=== PATIENT | male | born 1945 | race Caucasian/White ===

== ENCOUNTER 2018-03-22 09:14 | Emergency (ER) | payer MEDICARE ==
[2018-03-22 09:28] VITALS: BP 120/86
[2018-03-22] MEDS ORDERED: predniSONE TAB* 20 MG PO ONE (09:40)
--- NOTE | 2018-03-22 09:53 | UC ---
Throat Pain/Nasal Jakob HPI - HPI Summary HPI Summary: Patient is a 72-year-old male who noticed uvular edema when he woke up this morning. He has mild discomfort and no shortness of breath. Patient has a history of obstructive sleep apnea but does not use his CPAP machine. He has had recent nasal congestion and mild postnasal drip. He denies any chest pain. - History of Current Complaint Chief Complaint: UCRespiratory Stated Complaint: SOB Time Seen by Provider: 03/22/18 09:21 Hx Obtained From: Patient Onset/Duration: Sudden Onset, Lasting Hours Severity: Mild Pain Intensity: 0 Pain Scale Used: 0-10 Numeric Cough: None Associated Signs & Symptoms: Positive: Negative, Sinus Discomfort - Allergies/Home Medications Allergies/Adverse Reactions: Allergies Allergy/AdvReac Type Severity Reaction Status Date / Time No Known Allergies Allergy Verified 03/22/18 09:23 Home Medications: Home Medications Triazolam TAB* [Halcion TAB*] 0.25 mg PO BEDTIME PRN 03/22/18 [History Confirmed 03/22/18] PMH/Surg Hx/FS Hx/Imm Hx Endocrine History: Hypothyroidism, Dyslipidemia Cardiovascular History: Hypertension - Surgical History Surgical History: Yes Surgery Procedure, Year, and Place: R hip replacement. L knee replacement - Family History Known Family History: Positive: Hypertension - Social History Alcohol Use: None Substance Use Type: None Smoking Status (MU): Light Every Day Tobacco Smoker Amount Used/How Often: 1-2 cigs Review of Systems Constitutional: Negative Skin: Negative Eyes: Negative ENT: Sinus Congestion Respiratory: Negative Cardiovascular: Negative Gastrointestinal: Negative Genitourinary: Negative Motor: Negative Neurovascular: Negative Musculoskeletal: Arthralgia Neurological: Negative Psychological: Negative Is Patient Immunocompromised?: No All Other Systems Reviewed And Are Negative: Yes Physical Exam Triage Information Reviewed: Yes Appearance: Well-Appearing, No Pain Distress, Well-Nourished Vital Signs: Initial Vital Signs Temp 97.3 F 03/22/18 09:20 Pulse 80 03/22/18 09:20 Resp 18 03/22/18 09:20 BP 120/86 03/22/18 09:20 Pulse Ox 95 03/22/18 09:20 Vital Signs Reviewed: Yes Eyes: Positive: Conjunctiva Clear ENT: Positive: Hearing grossly normal, Nasal congestion, Uvula midline - swollen uvula, Other - no stridor. Negative: Nasal drainage, Trismus, Muffled voice, Hoarse voice Neck: Positive: Supple, Nontender Respiratory: Positive: Lungs clear, Normal breath sounds Neurological: Positive: Alert Psychological Exam: Normal Diagnostics - Laboratory Diagnostic Studies Completed/Ordered: px 95 % comment : normal/not hypoxic Throat Pain/Nasal Course/Dx - Differential Dx/Diagnosis Provider Diagnoses: Uvulitis Discharge - Sign-Out/Discharge Documenting (check all that apply): Discharge/Admit/Transfer - Discharge Plan Condition: Stable Disposition: HOME Prescriptions: Fexofenadine (NF) [Cinthya (NF)] 60 mg PO BID #14 tab predniSONE [Prednisone 20 MG TAB] 60 mg PO DAILY #6 tab Patient Education Materials: Uvulitis (ED) Referrals: Baldo James MD [Medical Doctor] - 3 Days (if not better) Additional Instructions: I suspect the cause of your uvular edema is multi factorial Post nasal drip and trauma from your uvula vibrating with snoring/sleep apnea I suggest you revisit using your CPAP Call your Primary to see about restarting it recheck for worsening symptoms see your MD in 3 days if not markedly better - Billing Disposition and Condition Condition: STABLE Disposition: Home
== END 2018-03-22 09:55 | disposition home or self-care (01) ==
LOC: UCEAST 09:14
DX: K12.2 Cellulitis and abscess of mouth (principal); J34.89 Other specified disorders of nose and nasal sinuses; E03.9 Hypothyroidism, unspecified; E78.5 Hyperlipidemia, unspecified; I10 Essential (primary) hypertension; Z96.641 Presence of right artificial hip joint; Z96.652 Presence of left artificial knee joint; F17.210 Nicotine dependence, cigarettes, uncomplicated
CPT/HCPCS: 99202; G0463; J7512

== ENCOUNTER 2018-04-20 06:34 | Inpatient (IN) | payer MEDICARE ==
--- NOTE | 2018-04-15 03:45 | HP ---
HISTORY AND PHYSICAL: DATE OF SURGERY: 04/20/18. DATE OF OFFICE VISIT: 04/14/18. SURGEON: Jing Melton MD. * (DICTATED BY VIRGILIO LAUREANO) PROCEDURE: Left total hip arthroplasty. CHIEF COMPLAINT: Left hip pain. HISTORY OF PRESENT ILLNESS: Mr. Serrano is a 72-year-old gentleman with complaints of left hip pain. He has failed conservative treatment and elected to proceed with a left total hip arthroplasty, which is scheduled for 04/27/18. PAST MEDICAL HISTORY: 1. Sleep apnea. 2. Hypertension. 3. Hypothyroidism. 4. BPH. 5. Obesity. PAST SURGICAL HISTORY: 1. Right total hip arthroplasty. 2. Left total knee arthroplasty. CURRENT MEDICATIONS: 1. [place] 10/325 every 6 hours. 2. Levothyroxine 175 mcg daily. 3. Lisinopril 10 mg daily. 4. Triazolam 0.25 mg 1 to 2 q.h.s. as needed for max 0.4 mg daily. ALLERGIES: No known drug allergies. FAMILY HISTORY: Cancer and Parkinson's. SOCIAL HISTORY: A 72-year-old gentleman lives with his . He does not use drugs or alcohol. He does smoke approximately 1 cigarette a day. REVIEW OF SYSTEMS: A complete 14-point review of systems was reviewed with the patient and it was positive for hypothyroidism. He denies history of DVT, PE, hepatitis, HIV, or anesthesia problems. PHYSICAL EXAMINATION GENERAL: He is well-developed, well-nourished, in no acute distress. VITAL SIGNS: He stands 72 inches tall, weighs 330 pounds. Blood pressure 112/ 80, heart rate is 64. HEENT: Normocephalic, atraumatic. NECK: Supple. No palpable lymph nodes. PULMONARY: The lungs are clear to auscultation bilaterally. CARDIO: Regular rate and rhythm. Strong S1, S2. ABDOMEN: Soft, nontender, nondistended. MUSCULOSKELETAL: Left lower extremity, the skin is intact. There are no open wounds or abrasions. He walks with an antalgic type gait favoring his left hip. His range of motion is 0 to 80 degrees of flexion, 20 degrees of external rotation. 2+ dorsalis pedis pulses. He has intact sensation. His lower extremity muscle group strengths are intact to 5/5. NEUROLOGICAL: He is alert and oriented x3. ASSESSMENT AND PLAN: Mr. Serrano is a 72-year-old gentleman with end-stage osteoarthritis of the left hip. He has failed conservative treatment and elected to proceed with a left total hip arthroplasty, which is scheduled for with Dr. Melton. Dr. Melton discussed the risks and benefits of the surgery at today's visit and all of his questions were answered. He will follow up with Dr. Melton 2 weeks after the surgery. VIRGILIO LAUREANO [id number]/[facility] #: [id number] MTDNacho
[~2018-04-20 06:34] MED LIST: Acetaminophen TAB* 325 MG PO ONE; Buffered Lidocaine 0.9% SYRIN* 5 ML/SYR SYRINGE INTRADERM ONE; Famotidine IV* 10 MG/ML 2 ML (20 mg) IV ONE; Gabapentin CAP(*) 300 MG PO ONE; Metoclopramide TAB* 10 MG PO ONE; celeCOXIB CAP* 200 MG PO ONE
--- OUTSIDE RECORDS SUMMARY | 2018-04-20 06:43 | XMS REPORT ---
:1945 External Reference #:[id number] Author Organization [employer] Address [address] [place] [address] Phone [phone] Care Team Providers Name Role Phone Baldo James MD Primary Care Physician Unavailable Payers Type Date Identification Numbers Payment Provider Subscriber Medicare Primary Policy Number: [id number] Medicare Arjun Serrano PayID: [id number] [facility] [address] [place] [address] Problems Date Description Provider Status Onset: 03/15/2018 Localized, primary osteoarthritis of the Jing Melotn M.D. Active pelvic region and thigh Onset: 03/15/2018 Localized, primary osteoarthritis Jing Melton M.D. Active Family History Date Family Member(s) Problem(s) Comments General No Current Problems Social History Type Date Description Comments Lives With Occupation Retired ETOH Use Denies alcohol use Smoking Patient is a current smoker, smokes every day Exercise Type/Frequency Does not exercise Allergies, Adverse Reactions, Alerts Date Description Reaction Status Severity Comments 03/15/2018 NKDA active Medications Medication Date Status Form Strength Qnty SIG Indications Ordering Provider [place] Active Tablets 10-325mg 1 tab Unknown 000 every 6 hours as needed for pain mdd=4 Levothyroxine Active Tablets 175mcg 1 by mouth Unknown Sodium 000 every day Lisinopril Active Tablets 10mg 1 by mouth Unknown 000 every day Triazolam Active Tablets 0.25mg take 1-2 Unknown 000 at bedtime as needed Flomax Active Capsules 0.4mg 1 by mouth Unknown 000 every day Magnesium Hx Tablets 400mg 1 by mouth Unknown 000 - every day 018 Vital Signs Date Vital Result Comment 04/14/2018 Height 72 inches 6'0" Weight 330.00 lb Heart Rate 64 /min BP Systolic 112 mmHg BP Diastolic 80 mmHg Respiratory Rate 24 /min Body Temperature 97.4 F BMI (Body Mass Index) 44.8 kg/m2 03/15/2018 Height 72 inches 6'0" Weight 330.00 lb Heart Rate 95 /min BP Systolic 121 mmHg BP Diastolic 81 mmHg Body Temperature 97.7 F BMI (Body Mass Index) 44.8 kg/m2 Results Description No Information Procedures Description No Information Encounters Type Date Location Provider CPT E/M Dx Office Visit 03/15/2018 [facility] Jing Melton M.D. [id number] M25.561 3:[facility] M25.461 M17.11 M25.552 M16.12 E66.01 Z68.41 Plan of Care Future Appointment(s):05/10/2018 11:30 am - VIRGILIO Isabel at [facility]04/27/2018 3:30 pm - Richard Pino PA-C at [facility]04/27/2018 3:30 pm - VIRGILIO Isabel at [facility].ARenee04/27/2018 3:30 pm - Jing Melton M.D. at [facility]04/14/2018 - Jing Melton M.D.M25.552 Pain in left hipFollow up:Follow up: 2 weeks after [id number] Unilateral primary osteoarthritis, left hip
[2018-04-20] MEDS ORDERED: Lidocaine 2% PF * 5 ML VIAL ONE (07:16)
[2018-04-20] MEDS ORDERED: Propofol* 10 MG/ML 20 ML BTL IV PUSH ONE (07:16)
[2018-04-20] MEDS ORDERED: Ondansetron INJ* 2 MG/ML VIAL ONE (07:16)
[2018-04-20] MEDS ORDERED: fentaNYL* 50 MCG/ML 5 ML VIAL (250 MCG VIAL) ONE (07:16)
[2018-04-20] MEDS ORDERED: Dexamethasone IV* 4 MG/ML 1 ML (4 MG) ONE ×2 (07:16→09:04)
[2018-04-20] MEDS ORDERED: KETAMINE HCL* 50 MG/ML 10 ML VIAL ONE (07:16)
[2018-04-20] MEDS ORDERED: Rocuronium* 10 MG/ML VIAL ONE (07:16)
[2018-04-20] MEDS ORDERED: Midazolam* 1 MG/ML 5 ML VIAL (5 MG) ONE (07:17)
[2018-04-20] MEDS ORDERED: ceFAZolin 1 GM in Dextrose (*) 1 GM/50 ML BAG IVPB ONE (07:36)
[2018-04-20] MEDS ORDERED: Metoclopramide TAB* 10 MG ONE (07:36)
[2018-04-20] MEDS ORDERED: celeCOXIB CAP* 100 MG ONE (07:36)
[2018-04-20] MEDS ORDERED: ceFAZolin 2 GM PREMIX (*) 2 GM/50 ML BAG IVPB ONE (07:36)
[2018-04-20] MEDS ORDERED: Gabapentin CAP(*) 300 MG ONE (07:36)
[2018-04-20] MEDS ORDERED: Famotidine IV* 10 MG/ML 2 ML (20 mg) ONE (07:36)
[2018-04-20] MEDS ORDERED: Acetaminophen TAB* 325 MG ONE (07:36)
[2018-04-20] MEDS ORDERED: VASOPRESSIN 20 UNITS/ML 1 ML VIAL ONE (08:34)
[2018-04-20] MEDS ORDERED: Levalbuterol 0.63MG/3ML NEB* UNIT OF USE INH PRN (09:40)
[2018-04-20] MEDS ORDERED: HYDROmorphone INJ* 0.5 MG/0.5 ML SYRINGE IV PRN (09:40)
[2018-04-20] MEDS ORDERED: Ondansetron INJ* 2 MG/ML VIAL IV PRN (09:40)
[2018-04-20] MEDS ORDERED: Naloxone* 0.4 MG/ML 1 ML VIAL IV PRN (09:40)
[2018-04-20] MEDS ORDERED: Bupivacaine 0.5% PF 10 ML VIAL INJ ONE (09:49)
[2018-04-20] MEDS ORDERED: HYDROmorphone INJ* 0.5 MG/0.5 ML SYRINGE ONE ×2 (10:09→10:31)
--- NOTE | 2018-04-20 10:25 | RAD ---
INDICATION: Left hip replacement COMPARISON: None TECHNIQUE: Portable, crosstable lateral imaging was performed. FINDINGS: There is placement of the acetabular cup and the femoral stem for sizing.
[2018-04-20] MEDS ORDERED: Phenylephrine 1% NASAL* 15 ML BOT ONE (11:08)
[2018-04-20] MEDS ORDERED: Labetalol IV* 5 MG/ML 20 ML VIAL ONE (11:23)
[2018-04-20] MEDS ORDERED: Magnesium Hydroxide LIQ* 30 ML UDC PO PRN (11:24)
[2018-04-20] MEDS ORDERED: oxyCODONE/Acetamin 5/325 MG* TAB PO PRN (11:24)
[2018-04-20] MEDS ORDERED: Ondansetron TAB* 4 MG PO PRN (11:24)
[2018-04-20] MEDS ORDERED: Morphine INJ* 2 MG/ML 1 ML CARPUJECT IV PRN (11:24)
[2018-04-20] MEDS ORDERED: diPHENhydraMINE IV* 50 MG/ML 1 ml VIAL (BENADRYL) IV PRN (11:24)
[2018-04-20] MEDS ORDERED: Bisacodyl SUPP* 10 MG SUPP PR PRN (11:24)
[2018-04-20] MEDS ORDERED: Senna TAB PO PRN (11:31)
[2018-04-20] MEDS ORDERED: Neostigmine Methylsulfate* 1 MG/ML 10 ML VIAL (1 mg/ml) ONE (11:37)
[2018-04-20] MEDS ORDERED: Glycopyrrolate IV* 0.2 MG/ML 1 ML VIAL ONE (11:37)
[2018-04-20] MEDS ORDERED: fentaNYL* 50 MCG/ML 2 ML VIAL (100 MCG VIAL) ONE ×2 (11:43→13:17)
[2018-04-20] MEDS: fentaNYL* 50 MCG/ML 2 ML VIAL (100 MCG VIAL) IV PRN ×3 (11:47→13:17)
[2018-04-20] MEDS ORDERED: ceFAZolin 1 GM in Dextrose (*) 1 GM/50 ML BAG IVPB SCH (12:00)
--- NOTE | 2018-04-20 12:31 | RAD ---
Indication: Post LEFT total hip replacement. Comparison: March 15, 2018 Technique: Low AP pelvis and proximal femurs and dedicated AP and crosstable lateral views of the LEFT hip. Report: Complete LEFT hip prosthesis in place with normal alignment. Negative for periprosthetic fracture. Surrounding soft tissue edema and subcutaneous emphysema. RIGHT total hip prosthesis noted. IMPRESSION: #. Unremarkable immediate postop appearance following LEFT total hip replacement.
[2018-04-20] MEDS: Acetaminophen TAB* 325 MG PO SCH ×2 (15:07→21:11)
--- NOTE | 2018-04-20 15:45 | PN ---
Progress Note - Progress Note Date of Service: 04/20/18 SOAP: Post op note: Subjective: Pt was seen in bed today. He states that he feels well, pain is decreased from surgery. He is currently eating a snack and smiling. Disposition is pleasant. He is on continue capnography Objective Alert and oriented. NAD Pts vital signs have been stable. Able to df/pf in left leg. Assesment: POD 0 - LTHA Plan: Continue with capnography Continue with percocet 5/325 for pain PT/OT to start tomorrow Warfarin 6mg tonight, lovenox 40mg tomorrow at 1200
[2018-04-20] MEDS: ceFAZolin 1 GM in Dextrose (*) 1 GM/50 ML BAG IVPB SCH (16:51)
[2018-04-20] MEDS: oxyCODONE TAB* 5 MG TAB PO PRN (16:54)
[2018-04-20] MEDS ORDERED: Warfarin TAB(*) 6 MG PO ONE (17:00)
[2018-04-20] MEDS: Tamsulosin CAP* 0.4 MG PO SCH (17:16)
[2018-04-20] MEDS: Levothyroxine TAB* 175 MCG TAB PO SCH (17:16)
[2018-04-20] MEDS: Lisinopril TAB* 5 MG PO SCH (17:16)
[2018-04-20] MEDS ORDERED: Morphine INJ* 2 MG/ML 1 ML SYRINGE (TWO MG - NEW SYRINGE VERSION) IV PRN (18:31)
[2018-04-20] MEDS: Cyclobenzaprine TAB* 10 MG PO PRN (18:32)
[2018-04-20] MEDS: oxyCODONE/Acetamin 5/325 MG* TAB PO PRN (20:56)
[2018-04-20] MEDS: Docusate CAP* 100 MG PO SCH (20:57)
[2018-04-20] MEDS: Magnesium Hydroxide LIQ* 30 ML UDC PO SCH (21:11)
--- NOTE | 2018-04-20 21:27 | CONS ---
CC: Dr. Baldo James; Dr. Jing Melton * CONSULTATION REPORT: DATE OF CONSULT: 04/20/18 PRIMARY CARE PROVIDER: Dr. Baldo James. PHYSICIAN REQUESTING CONSULT: Dr. Jing Melton. ATTENDING PHYSICIAN: Dr. Tripp West (dictated by Cat Blakely NP) REASON FOR CONSULT: Co-medical management in a patient with a history of sleep apnea, hypertension, obesity. HISTORY OF PRESENT ILLNESS: Mr. Serrano is a 72-year-old male with past medical history significant for sleep apnea, hypertension, hypothyroidism, BPH, obesity , duodenal ulcer, hiatal hernia, and insomnia, who has been in his usual state of health with the exception of complaints of left hip pain. The patient has failed conservative treatments for his left hip pain and has elected to undergo an elective left total hip arthroplasty with Dr. Jing Melton. The patient states that preoperatively he has been in his usual state of health. He denies any fevers, chills, chest pain, shortness of breath, nausea, vomiting, diarrhea. The patient reports that he does not use his CPAP at home and that his primary care provider was going to assist him in having new testing done. The hospitalists were asked to assist with co-medical management during his hospitalization. PAST MEDICAL HISTORY: 1. Sleep apnea. 2. Hypertension. 3. Hypothyroidism. 4. BPH. 5. Obesity. 6. Duodenal ulcer. 7. Hiatal hernia. 8. Insomnia. PAST SURGICAL HISTORY: 1. Status post left total hip arthroplasty. 2. Status post left total knee arthroplasty. MEDICATIONS: Home medications include: 1. Norvasc 10/325 one tablet oral every 6 hours as needed for pain. 2. Levothyroxine 175 mcg oral daily. 3. Triazolam 0.25 mg oral at bedtime as needed. 4. Diclofenac topical gel apply 4 times daily as needed to thumb. 5. Flonase nasal spray, 2 sprays to nares daily as needed for allergy symptoms. ALLERGIES: No known drug allergies. FAMILY HISTORY: The patient denies any family history of coronary artery disease, cancer, or diabetes. The patient thinks his father may have had cancer , but he is unsure. SOCIAL HISTORY: The patient denies alcohol or recreational drug use. He smokes 1 cigarette daily. He has a 40-year smoking history. His , Camelia Serrano, will be his surrogate decision maker in the event he is unable to make decisions for himself. REVIEW OF SYSTEMS: I performed an 11-point review of systems. All the pertinent positives and negatives are mentioned in the history of present illness. The remaining review of systems is negative. PHYSICAL EXAM: Vital Signs: Temperature 97.5, heart rate 95, respiratory rate 18, O2 sat 95% on 3 L via nasal cannula, blood pressure 135/82. General Appearance: The patient is alert, pleasant, appears to be in no acute distress. HEENT: Normocephalic, atraumatic. Pupils are equal and reactive to light. Extraocular movements are intact. Respiratory: There is no accessory muscle use. Lungs are clear to auscultation, bilateral. Cardiovascular: Regular rate and rhythm. S1, S2 present. There are no murmurs, rubs, or gallops heard. Abdomen: Soft, large, nontender, nondistended. There are bowel sounds present x4. Extremities: There is no lower extremity edema. DP and PT pulses are 2+ and symmetric. Musculoskeletal: There is no clubbing or cyanosis noted. The patient exhibits good strength in all extremities. Neurological: The patient is alert and oriented x4. Cranial nerves II through XII are grossly intact. Psychological: The patient is calm and cooperative. Skin: There are no rashes or abnormalities seen. He has a dressing to his left hip that is clean, dry, and intact. LABORATORY DATA: Preoperative labs from 03/30/18 revealed sodium 139, potassium 4.3, chloride 103, CO2 26, BUN 21, creatinine 0.9, glucose 102. White blood cell count 10.7, hemoglobin 15.0, hematocrit 46.6, platelet count 319. Urine culture from 04/14/18 with no growth. IMPRESSION: Mr. Serrano is a 72-year-old male with past medical history significant for sleep apnea, hypertension, hypothyroidism, benign prostatic hyperplasia, obesity, a duodenal ulcer, and osteoarthritis, who presents to the hospital for an elective left total hip arthroplasty with Dr. Jing Melton. The hospitalists have been asked to assist with co-medical management of this patient during his hospitalization. ASSESSMENT/PLAN: 1. Status post left total hip arthroplasty. Management will be per Orthopedic Surgery. The patient will have his H and H trended. He will have urinary catheter in place until the morning. He will be placed on a bowel regimen and pain management regimen. We will trend his H and H's, check a BMP in the morning. He will have physical therapy and occupational therapy. 2. Hypertension. The patient is currently normotensive with some labile blood pressures. We will continue his lisinopril unless he becomes hypotensive this evening at which time we will hold it and resume accordingly. 3. Hypothyroidism. The patient will be continued on his home levothyroxine. 4. History of benign prostatic hyperplasia and urinary retention. The patient has stopped taking his tamsulosin. 5. Obstructive sleep apnea. The patient reports that he is noncompliant with his CPAP. He will be on overnight CO2 and pulse ox monitoring. I am going to avoid using CPAP here as the patient states he does not use one at home. We will give him supplemental oxygen at night if needed. 6. Obesity. The patient's BMI is 44. 7. Fluids, electrolytes, and nutrition. He will be on a clear liquid to regular diet as tolerated. 8. Code status. Full code. 9. DVT prophylaxis. He will be on Lovenox bridged to warfarin. 10. Disposition. Inpatient, disposition per Orthopedic Surgery. TIME SPENT: Time for this consultation was approximately 60 minutes, greater than half of that was spent with the patient discussing medications, past medical history, the events leading up to his arrival today, performing a physical examination. Reviewed by KATHIE RODRIGUEZ 04/21/18 1826 [id number]/[facility] #: [id number] CATRACHITA
[2018-04-20] MEDS: Triazolam TAB* 0.25 MG PO PRN (22:56)
[2018-04-21] MEDS: ceFAZolin 1 GM in Dextrose (*) 1 GM/50 ML BAG IVPB SCH ×2 (00:43→08:18)
[2018-04-21] MEDS: oxyCODONE/Acetamin 5/325 MG* TAB PO PRN ×4 (04:32→17:49)
[2018-04-21] MEDS: Acetaminophen TAB* 325 MG PO SCH ×3 (04:36→20:57)
[2018-04-21 06:12] LABS: Hematocrit 36 % (42-52); Hemoglobin 11.6 g/dl (14.0-18.0); Platelet Count 257 10^3/ul (150-450)
[2018-04-21 06:21] LABS: EGFR Non-African American 71.4 (>60)
[2018-04-21 06:23] LABS: INR 0.9 (0.77-1.02)
[2018-04-21] MEDS: Cyclobenzaprine TAB* 10 MG PO PRN (08:18)
[2018-04-21] MEDS: Vitamin THERAPEUTIC TAB PO SCH (08:18)
[2018-04-21] MEDS: Docusate CAP* 100 MG PO SCH ×2 (08:19→20:56)
[2018-04-21] MEDS: Magnesium Hydroxide LIQ* 30 ML UDC PO SCH ×2 (08:20→23:08)
--- NOTE | 2018-04-21 09:10 | PN ---
Progress Note - Progress Note Date of Service: 04/21/18 SOAP: Subjective: [] Patient seen at bedside. He had 3/10 hip pain which is tolerable. He denies chest pain, shortness of breath, dizziness or nausea. He vocalizes that he does not have interest in participating with physical therapy and that he will be determining his course of care himself. Objective: []General: Well appearing, NAD LLE: Left hip dressing CDI without surrounding erythema. Thigh is soft. DF/PF intact. DP2+ BL calves supple and nontender without erythema, edema or palpable cords Assessment: [] POD 1 s/p LTHA Plan: []PT/OT. This may be difficult to encourage patient participation. Goal would be for patient to mobilize safely on his own to decrease fall risk/ dislocation risk when he goes home Hip precautions WBAT lovenox, coumadin 8 mg today Vital Signs Temp 97.9 F 04/21/18 04:24 Pulse 85 04/21/18 04:24 Resp 15 04/21/18 08:19 BP 129/75 04/21/18 04:24 Pulse Ox 95 04/21/18 06:00 Intake & Output 04/20/18 04/21/18 04/21/18 18:59 06:59 18:59 Intake Total 3060 1780 Output Total 675 2250 Balance 2385 -470 Weight 325 lb Intake: IV Fluids 3000 980 LR 3000 980 IVPB 50 ABX - CEFAZOLIN 50 Oral 60 750 Output: Pina 475 2250 Estimated Blood Loss 200 Other: # Bowel Movements 0 Laboratory Last Values Hgb 11.6 g/dl (14.0-18.0) L 04/21/18 05:23 Hct 36 % (42-52) L 04/21/18 05:23 Plt Count 257 10^3/ul (150-450) 04/21/18 05:23 MPV 9.0 um3 (7.4-10.4) 04/21/18 05:23 INR (Anticoag Therapy) 0.90 (0.77-1.02) 04/21/18 05:23 Sodium 139 mmol/L (135-145) 04/21/18 05:23 Potassium 4.4 mmol/L (3.5-5.0) 04/21/18 05:23 Chloride 107 mmol/L (101-111) 04/21/18 05:23 Carbon Dioxide 26 mmol/L (22-32) 04/21/18 05:23 Anion Gap 6 mmol/L (2-11) 04/21/18 05:23 BUN 18 mg/dL (6-24) 04/21/18 05:23 Creatinine 1.03 mg/dL (0.67-1.17) 04/21/18 05:23 Est GFR ( Amer) 86.4 (>60) 04/21/18 05:23 Est GFR (Non-Af Amer) 71.4 (>60) 04/21/18 05:23 BUN/Creatinine Ratio 17.5 (8-20) 04/21/18 05:23 Glucose 131 mg/dL (70-100) H 04/21/18 05:23 Calcium 9.0 mg/dL (8.6-10.3) 04/21/18 05:23
--- NOTE | 2018-04-21 10:15 | OP ---
DATE OF OPERATION: 04/20/18 - ROOM #342 DATE OF : 49 ATTENDING SURGEON: Jing Melton MD LEASING DIRECTOR: VIRGILIO Marshall. Mr. Pino did help throughout the procedure with preparation of the leg, wound retraction, manipulation of the hip, and wound closure. ANESTHESIOLOGIST: Dr. Burgos. ANESTHESIA: General. 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 POST-OP DIAGNOSIS: Severe end-stage degenerative osteoarthritis of the left hip joint with morbid obesity. OPERATIVE PROCEDURE: Left total hip arthroplasty with modifier for increased complexity of case due to morbid obesity and increased operative time. COMPLICATIONS: None. ESTIMATED BLOOD LOSS: 300 cc. SPECIMENS: Femoral head and acetabular reaming sent to pathology. HARDWARE USED: This is uncemented [place] total hip arthroplasty hardware. For the cup, a 54 E Tritanium cluster hole shell, a 36 E 10-degree polyethylene liner. For the stem, an Accolade TMZF size 5 with 127-degree neck. For the head , a 36+5 Biolox delta ceramic femoral head. BRIEF HISTORY/INDICATION: Mr. Serrano is a 72-year-old gentleman with years of increasingly severe left hip pain. He failed conservative treatment with the anti- inflammatories, pain medications, physical therapy, and the ambulatory assistive devices. He elected to undergo left total hip arthroplasty due to continued pain and decreased quality of life. Radiograph showed [id number] arthritis. Informed consent was obtained from the patient. He understood the risks of surgery included, but were not limited to, bleeding, infection, damage to nearby structures, continued pain, need for further surgery, intraoperative nerve palsy, hardware failure or loosening, dislocation, leg length discrepancy , stroke, heart attack, blood clot, and . He wished to proceed. INTRAOPERATIVE FINDINGS: Intraoperatively, the patient was noted to have morbid obesity and body habitus with at least 10-cm of subcutaneous fat. This did add time to every step of the case and at least an additional hour of operative time. The patient was found to have severe end-stage arthritis with complete loss of cartilage on the femoral head and acetabulum. DESCRIPTION OF PROCEDURE: Mr. Serrano was identified in the preoperative anesthesia unit. His left lower extremity was marked as the correct operative side. Informed consent was signed and placed in the chart. The patient was taken to the operating room and placed under general anesthesia. A Pina catheter was placed. The patient was placed in the right lateral decubitus position on the pegboard. All bony prominences were well padded. Left lower extremity was prepped and draped in the usual sterile fashion. Preop time-out was made to once again correctly identify the patient's side and site. Appropriate perioperative antibiotics were given within 1 hour of incision. A standard posterior hip incision was made with a 10-blade and carried down to the lateral fascial layer. Lateral fascial layer was then incised in line with the skin incision. Deep Charnley retractor was placed. The piriformis and conjoint tendons were identified and elevated off the posterolateral femur using electrocautery. Electrocautery was then used to make a posterolateral capsular flap and this was also tagged with #5 Ethibond. The hip was carefully dislocated. Lesser troch to the center of the femoral head measured 70 mm. Oscillating saw was used to make the appropriate femoral neck cut. The femur was retracted anteriorly. After appropriate placement of retractor, the acetabulum was well visualized. Long- handled knife was used to sharply remove any remaining labrum from the acetabular rim. The acetabulum was sequentially reamed up to a size 33 reamer. Bleeding subchondral bone bed was obtained. A 53 trial had excellent fit. Final implant chosen was a 54E cluster hole shell Tritanium cup. This was impacted into the acetabulum without difficulty. There was good stability of the cup as well as appropriate anteversion and abduction angle. A 36E 10- degree polyethylene Trident X3 liner was chosen and this was impacted into the acetabulum. Stability of the liner was checked and rechecked and noted to be stable. Attention was next turned to preparation of the proximal femur. A canal finder was used to enter the proximal femur. Femur was sequentially broached up to a size 5. Size 5 broach had excellent fit and appropriate anteversion. A 127 neck trial was placed with a +0 head trial. Lesser troch to center of the femoral head measured 61 mm. A +5 head was chosen and this measured 66 mm. The hip was reduced and taken through a range of motion. The hip was stable in all positions. Leg lengths were deemed to be appropriate and soft tissue tension was appropriate. The hip was carefully dislocated. All trials were removed. Final implant chosen was an Accolade TMZF size 5 with a 127-degree neck. This was impacted into the femoral canal without difficulty. The stem had excellent stability and appropriate anteversion. A 36 +5 ceramic Biolox delta V40 femoral head was chosen and impacted onto the femoral neck. Lesser troch to the center of the femoral head measured 67 mm. The hip was reduced and taken through a range of motion. The hip was stable in all positions. The hip was copiously irrigated with sterile saline. Previously tagged tendons and capsule were reapproximated to the posterolateral femur through 2 trochanteric drill holes. The hip was copiously irrigated with sterile saline. Extensive mechanism was closed using interrupted #1 Vicryls. The rest of the incision was closed in a layered fashion using 0 and 2-0 Vicryls. Skin was closed using running 3-0 Monocryl and Dermabond. Sterile Adaptic, 4x4s, and paper tape were used to cover the incision. The patient's anesthesia was reversed without difficulty. The patient was slow to come out of the anesthesia. He was placed on CPAP and taken to the recovery unit in stable condition. Intended weightbearing will be weightbearing as tolerated. Intended DVT prophylaxis will be Coumadin with a Lovenox bridge. [id number]/[facility] #: [id number] CATRACHITA
[2018-04-21] MEDS: Enoxaparin(*) 40 MG/0.4 ML SYR SUBCUT SCH (11:27)
[2018-04-21] MEDS: oxyCODONE TAB* 5 MG TAB PO PRN ×3 (11:27→20:57)
--- NOTE | 2018-04-21 16:32 | PN ---
Subjective Date of Service: 04/21/18 Interval History: Patient is doing well. Notices upper airway wheezing but states this occurs at home. Denies CP, SOB, N/V, abdominal pain, obstipation, F/C, dizziness, palpitations, dysuria, retention, or other pain. Pain in hip controlled. Walked well with PT. Family History: Unchanged from Admission Social History: Unchanged from Admission Past Medical History: Unchanged from Admission Objective Active Medications: Acetaminophen (Tylenol Tab*) 650 mg PO Q8H [facility] Last Admin: 04/21/18 11:29 Dose: Not Given Bisacodyl (Dulcolax Supp*) 10 mg UT DAILY PRN PRN Reason: constipation Cyclobenzaprine HCl (Flexeril Tab*) 10 mg PO TID PRN PRN Reason: SPASMS Last Admin: 04/21/18 08:18 Dose: 10 mg Diphenhydramine HCl (Benadryl Iv*) 25 mg IV Q6H PRN PRN Reason: itching Docusate Sodium (Colace Cap*) 100 mg PO BID [facility] Last Admin: 04/21/18 08:19 Dose: 100 mg Enoxaparin Sodium (Lovenox(*)) 40 mg SUBCUT Q24H [facility] Last Admin: 04/21/18 11:27 Dose: 40 mg Fentanyl Citrate (Fentanyl*) 50 mcg IV Q5M PRN PRN Reason: PAIN - MODERATE Last Admin: 04/20/18 13:17 Dose: 50 mcg Hydromorphone HCl (Dilaudid Inj*) 0.5 mg IV Q10M PRN PRN Reason: PAIN - SEVERE Lactated Ringer's (Lactated Ringers 1000 Ml Bag*) 1,000 mls @ 125 mls/hr IV PER RATE [facility] Last Admin: 04/20/18 07:48 Dose: 125 mls/hr Lactated Ringer's (Lactated Ringers 1000 Ml Bag*) 1,000 mls @ 100 mls/hr IV PER RATE [facility] Last Admin: 04/21/18 00:43 Dose: 100 mls/hr Levalbuterol HCl (Xopenex 0.63mg/3ml Neb*) 0.63 mg INH ONCE PRN PRN Reason: SOB/WHEEZING Levothyroxine Sodium (Synthroid Tab*) 175 mcg PO QPM [facility] Last Admin: 04/20/18 17:16 Dose: 175 mcg Lisinopril (Prinivil Tab*) 5 mg PO QPM [facility] Last Admin: 04/20/18 17:16 Dose: 5 mg Magnesium Hydroxide (Milk Of Magnesia Liq*) 30 ml PO BID [facility] Last Admin: 04/21/18 08:20 Dose: Not Given Magnesium Hydroxide (Milk Of Magnesia Liq*) 30 ml PO Q6H PRN PRN Reason: constipation Morphine Sulfate (Morphine Inj ((Syringe))*) 2 mg IV Q2H PRN PRN Reason: PAIN Last Admin: 04/20/18 18:35 Dose: 2 mg Multivitamins (Theragran Tab*) 1 tab PO DAILY [facility] Last Admin: 04/21/18 08:18 Dose: 1 tab Naloxone HCl (Narcan*) 0.08 mg IV Q2M PRN PRN Reason: severe induced resp depression Ondansetron HCl (Zofran Inj*) 4 mg IV ONCE PRN PRN Reason: NAUSEA/VOMITING Ondansetron HCl (Zofran Tab*) 4 mg PO Q6H PRN PRN Reason: NAUSEA Oxycodone HCl (Roxycodone Tab*) 10 mg PO Q4H PRN PRN Reason: PAIN - SEVERE Last Admin: 04/21/18 15:57 Dose: 10 mg Oxycodone/Acetaminophen (Percocet 5/325 Tab*) 1 tab PO Q4H PRN PRN Reason: PAIN Oxycodone/Acetaminophen (Percocet 5/325 Tab*) 2 tab PO Q4H PRN PRN Reason: PAIN Last Admin: 04/21/18 13:25 Dose: 2 tab Senna (Senokot Tab*) 1 tab PO QID PRN PRN Reason: CONSTIPATION Tamsulosin HCl (Flomax Cap*) 0.4 mg PO QPM [facility] Last Admin: 04/20/18 17:16 Dose: 0.4 mg Triazolam (Halcion Tab*) 0.25 mg PO BEDTIME PRN PRN Reason: INSOMNIA Last Admin: 04/20/18 22:56 Dose: 0.25 mg Vital Signs - 8 hr 04/21/18 04/21/18 04/21/18 10:00 10:19 11:24 Temperature Pulse Rate Respiratory 16 16 16 Rate Blood Pressure (mmHg) O2 Sat by Pulse 95 Oximetry 04/21/18 04/21/18 04/21/18 11:27 11:33 12:00 Temperature 97.7 F Pulse Rate 80 Respiratory 15 16 16 Rate Blood Pressure 149/78 (mmHg) O2 Sat by Pulse 95 95 Oximetry 04/21/18 04/21/18 04/21/18 13:25 13:26 14:00 Temperature Pulse Rate Respiratory 16 15 16 Rate Blood Pressure (mmHg) O2 Sat by Pulse 92 Oximetry 04/21/18 04/21/18 04/21/18 15:47 15:53 15:57 Temperature 98.5 F Pulse Rate 96 Respiratory 16 16 16 Rate Blood Pressure 113/58 (mmHg) O2 Sat by Pulse 92 Oximetry Oxygen Devices in Use Now: None Appearance: Patient is a 72yo male who appears stated age and is sitting in the bed in NAD. Eyes: No Scleral Icterus, PERRLA Ears/Nose/Mouth/Throat: NL Teeth, Lips, Gums, Clear Oropharnyx, Mucous Membranes Moist Neck: NL Appearance and Movements; NL JVP, Trachea Midline Respiratory: Symmetrical Chest Expansion and Respiratory Effort, Clear to Auscultation, - - Upper airway wheezing Cardiovascular: NL Sounds; No Murmurs; No JVD, RRR, No Edema Abdominal: NL Sounds; No Tenderness; No Distention, No Hepatosplenomegaly Lymphatic: No Cervical Adenopathy Extremities: No Edema, No Clubbing, Cyanosis Skin: No Nodules or Sclerosis, - - Left hip incision covered with bulky dressing. Neurological: Alert and Oriented x 3, NL Sensation, NL Muscle Strength and Tone Result Diagrams: 04/21/18 05:23 04/21/18 05:23 Assess/Plan/Problems-Billing Assessment: Patient is a 72yo male with a PMH for CHANDRAKANT, HTN, here with TLHA and is doing well postoperatively. - Patient Problems (1) Post-operative state Current Visit: Yes Status: Acute Code(s): Z98.890 - OTHER SPECIFIED POSTPROCEDURAL STATES SNOMED Code(s): 23300589 Comment: Management per primary team. H/H stable. Pain controlled. Passing gas, post operative urinary retention resolved. Continue PT/OT and bowel regimen. (2) HTN (hypertension) Current Visit: Yes Status: Acute Code(s): I10 - ESSENTIAL (PRIMARY) HYPERTENSION SNOMED Code(s): 70390554 Comment: Normotensive. Continue Lisinopril (3) CHANDRAKANT (obstructive sleep apnea) Current Visit: Yes Status: Acute Code(s): G47.33 - OBSTRUCTIVE SLEEP APNEA ( ADULT) (PEDIATRIC) SNOMED Code(s): 09426802 Comment: Continue CPAP. Improved compliance (4) Hypothyroid Current Visit: Yes Status: Acute Code(s): E03.9 - HYPOTHYROIDISM, UNSPECIFIED SNOMED Code(s): 18245713 Comment: Continue synthroid. (5) BPH (benign prostatic hyperplasia) Current Visit: Yes Status: Acute Code(s): N40.0 - BENIGN PROSTATIC HYPERPLASIA WITHOUT LOWER URINRY TRACT SYMP SNOMED Code(s): 997115249 Comment: Urinary retention resolved. Patient self-discontinued Flomax. (6) DVT prophylaxis Current Visit: Yes Status: Acute Code(s): QFC6542 - SNOMED Code(s): 627170234 Comment: Lovenox to Coumadin (7) Full code status Current Visit: Yes Status: Acute Code(s): Z78.9 - OTHER SPECIFIED HEALTH STATUS SNOMED Code(s): 707146731 Status and Disposition: Inpatient. Disposition per primary team.
[2018-04-21] MEDS: Tamsulosin CAP* 0.4 MG PO SCH (17:49)
[2018-04-21] MEDS: Lisinopril TAB* 5 MG PO SCH (17:49)
[2018-04-21] MEDS: Levothyroxine TAB* 175 MCG TAB PO SCH (17:49)
[2018-04-21] MEDS: Triazolam TAB* 0.25 MG PO PRN (22:17)
[2018-04-22] MEDS: oxyCODONE/Acetamin 5/325 MG* TAB PO PRN ×2 (04:00→09:43)
[2018-04-22] MEDS: Acetaminophen TAB* 325 MG PO SCH (04:21)
[2018-04-22 06:14] LABS: Hematocrit 36 % (42-52); Hemoglobin 11.6 g/dl (14.0-18.0); Mean Platelet Volume 8.7 um3 (7.4-10.4); Platelet Count 245 10^3/ul (150-450)
[2018-04-22 06:24] LABS: INR 0.98 (0.77-1.02)
[2018-04-22 08:07] VITALS: BP 103/81
[2018-04-22] MEDS ORDERED: Albuterol/Ipratropium NEB.SOL* Albuterol 2.5 MG/Ipratropium 0.5 MG 3 ML INH ONE (09:04)
[2018-04-22] MEDS ORDERED: diPHENhydraMINE PO* 50 MG PO ONE (09:04)
[2018-04-22] MEDS: Magnesium Hydroxide LIQ* 30 ML UDC PO SCH (09:43)
[2018-04-22] MEDS: Vitamin THERAPEUTIC TAB PO SCH (09:43)
[2018-04-22] MEDS: Docusate CAP* 100 MG PO SCH (09:43)
[2018-04-22] MEDS ORDERED: Fluticasone NASAL SPRAY 50MCG* 16 gm SPRAY BTL BOTH NARES SCH (10:00)
[2018-04-22] MEDS ORDERED: MAGNESIUM 500 MG PO SCH (10:00)
[2018-04-22] MEDS ORDERED: predniSONE TAB* 20 MG PO SCH (10:00)
--- NOTE | 2018-04-22 10:45 | PN ---
Progress Note - Progress Note Date of Service: 04/22/18 SOAP: Subjective: []Patient seen at bedside. He feels well wand desires discharge home. Denies chest pain, shortness of breath, dizziness, nausea. Objective: []General: Well appearing, NAD LLE: Left hip dressing changed, incision CDI without surrounding erythema. Thigh is soft. DF/PF intact. DP2+ BL calves supple and nontender without erythema, edema or palpable cords Assessment: [] POD 2 s/p LTHA Plan: []PT/OT Hip precautions WBAT lovenox, coumadin 8 mg today DC home Vital Signs Temp 97.6 F 04/22/18 07:25 Pulse 99 04/22/18 07:25 Resp 16 04/22/18 09:43 BP 103/81 04/22/18 07:25 Pulse Ox 94 04/22/18 07:25 Intake & Output 04/21/18 04/22/18 04/22/18 18:59 06:59 18:59 Intake Total 980 1300 120 Output Total 175 250 Balance 805 1050 120 Intake: Oral 980 1300 120 Output: Urine 175 250 Other: Estimated Void Medium Small # Bowel Movements 0 # Voids 1 1 Laboratory Last Values Hgb 11.6 g/dl (14.0-18.0) L 04/22/18 06:00 Hct 36 % (42-52) L 04/22/18 06:00 Plt Count 245 10^3/ul (150-450) 04/22/18 06:00 MPV 8.7 um3 (7.4-10.4) 04/22/18 06:00 INR (Anticoag Therapy) 0.98 (0.77-1.02) 04/22/18 06:00 Sodium 139 mmol/L (135-145) 04/21/18 05:23 Potassium 4.4 mmol/L (3.5-5.0) 04/21/18 05:23 Chloride 107 mmol/L (101-111) 04/21/18 05:23 Carbon Dioxide 26 mmol/L (22-32) 04/21/18 05:23 Anion Gap 6 mmol/L (2-11) 04/21/18 05:23 BUN 18 mg/dL (6-24) 04/21/18 05:23 Creatinine 1.03 mg/dL (0.67-1.17) 04/21/18 05:23 Est GFR ( Amer) 86.4 (>60) 04/21/18 05:23 Est GFR (Non-Af Amer) 71.4 (>60) 04/21/18 05:23 BUN/Creatinine Ratio 17.5 (8-20) 04/21/18 05:23 Glucose 131 mg/dL (70-100) H 04/21/18 05:23 Calcium 9.0 mg/dL (8.6-10.3) 04/21/18 05:23 <Michelle Vinson - Last Filed: 04/22/18 10:44> - Progress Note SOAP: Subjective: [] Objective: [] Assessment: [] Plan: [] <Jing Melton - Last Filed: 04/22/18 14:05>
[2018-04-22] MEDS: oxyCODONE TAB* 5 MG TAB PO PRN (11:13)
[2018-04-22] MEDS: Enoxaparin(*) 40 MG/0.4 ML SYR SUBCUT SCH (11:13)
--- NOTE | 2018-04-23 04:32 | DS ---
DISCHARGE SUMMARY: DATE OF ADMISSION: 04/20/18 DATE OF DISCHARGE: 04/22/18 PROVIDER: Dr. Jing Melton.* (DICTATED BY VIRGILIO CROSS) PIECER: VIRGILIO Marshall PREOPERATIVE DIAGNOSES: 1. Severe end-stage degenerative osteoarthritis of the left hip joint. 2. Morbid obesity. OPERATIVE PROCEDURE: Left total hip arthroplasty with modifier for increased complexity of case due to morbid obesity and increased operative time. HISTORY: Mr. Serrano is a 72-year-old gentleman with years of increasingly severe left hip pain. He failed conservative management and underwent a left total hip arthroplasty. HOSPITAL COURSE: The patient underwent a left total hip arthroplasty without complication. He was seen by our hospitalist service during his stay. He met his goals with physical therapy while he was here. He was well-appearing, in no acute distress. Left lower extremity, on postop day 2, left hip dressing was changed. Incision clean, dry, and intact without surrounding erythema. Thigh was soft. Dorsiflexion and plantarflexion intact. 2+ dorsalis pedis pulse. Bilateral calves supple and nontender without erythema, edema, or palpable cords. Temp 97.6, pulse 99, respiratory rate 16, blood pressure 103/81 , pulse ox 94. Hemoglobin 11.6, hematocrit 36, INR 0.98. DISCHARGE MEDICATIONS: 1. Lisinopril 5 mg. 2. Levothyroxine 175 mcg p.o. q.a.m. 3. Halcion 0.25 mg p.o. at bedtime p.r.n. 4. Tamsulosin 0.4 mg p.o. p.m. 5. Senokot 1 tab p.o. four times a day p.r.n. 6. Docusate 100 mg p.o. four times a day p.r.n. 7. Acetaminophen 650 mg p.o. q.8 hours p.r.n. 8. Percocet 5/325 one to two tabs every 4 to 6 hours p.r.n., max daily dose of 10. 9. Warfarin 2 mg tabs, 1 to 3 tabs daily depending on INR. 10. Fluticasone nasal spray, 2 sprays both nares x7 days. 11. Prednisone 40 mg p.o. daily for 2 days. DISCHARGE INSTRUCTIONS: Weight bearing as tolerated. Do not take a bath, swim , or submerge wound until you are told otherwise. Coumadin dosing 04/22/18, 8 mg; 04/23/18, 6 mg; 04/24/18, 2 mg; 04/25/18, 2 mg. Recheck INR on 04/26/18. Pain control with Percocet 5/325 one to two tablets every 4 to 6 hours as needed for pain, max 10 tabs per day. For possible , please take prednisone 40 mg once daily for 2 days as well as Nasonex nasal spray, 2 sprays in both nares daily for 1 week. Follow up with an ENT outpatient. VIRGILIO CROSS [id number]/[facility] #: [id number] MTDD
== END 2018-04-22 12:40 | disposition home health service (06) | DRG 470 ==
LOC: AA 06:34 → SSU 14:47
PROVIDERS: ADMIT Orthopaedic Surgery Adult Reconstructive Orthopaedic Surgery; ATTEND Orthopaedic Surgery Adult Reconstructive Orthopaedic Surgery
PROC: 5A09357 Assistance with Respiratory Ventilation, Less than 24 Consecutive Hours, Continuous Positive Airway Pressure (ICD-10-PCS; 2018-04-20)
PROC: 0SRB04A Replacement of Left Hip Joint with Ceramic on Polyethylene Synthetic Substitute, Uncemented, Open Approach (ICD-10-PCS; principal; 2018-04-20 08:00)
DX: M16.12 Unilateral primary osteoarthritis, left hip (principal); E66.01 Morbid (severe) obesity due to excess calories; I10 Essential (primary) hypertension; E03.9 Hypothyroidism, unspecified; Z96.641 Presence of right artificial hip joint; Z96.652 Presence of left artificial knee joint; F17.210 Nicotine dependence, cigarettes, uncomplicated; G47.33 Obstructive sleep apnea (adult) (pediatric); K44.9 Diaphragmatic hernia without obstruction or gangrene; G47.00 Insomnia, unspecified; N40.1 Benign prostatic hyperplasia with lower urinary tract symptoms; R33.8 Other retention of urine; F41.9 Anxiety disorder, unspecified; E78.5 Hyperlipidemia, unspecified; Z80.9 Family history of malignant neoplasm, unspecified; Z82.0 Family history of epilepsy and other diseases of the nervous system; Z79.01 Long term (current) use of anticoagulants; Z68.41 Body mass index [BMI] 40.0-44.9, adult
CPT/HCPCS: 36415; 72170; 80048; 85014; 85018; 85049; 85610; 94660; A9270-GY; C1776; G8978-GP-CM; G8979-GP-CJ; G8987-GO-CK; G8988-GO-CJ; J0690; J1100; J1170; J1650; J2250; J2270; J2405; J2704; J2710; J3010; J7512

== ENCOUNTER 2019-06-10 14:17 | Emergency (ER) | payer MEDICARE ==
--- OUTSIDE RECORDS SUMMARY | 2019-06-10 14:56 | XMS REPORT | Summary of Care ---
:1945 Author Organization [facility] Address [address] [facility] [place] [address] Care Team Providers Name Role Phone Baldo James MD Primary Care Provider Reason for Visit Reason Comments Congestion sinus congestion, heaviness in chest, coughing up green stuff. Encounter Details Date Type Department Care Team Description 05/30/2019 Office Visit [facility], Cough (Primary Dx); Practice [facility] [place] Acute bacterial rhinosinusitis [address] [place], [place] [id number] [place] [address] [phone] Allergies No Known Allergiesdocumented as of this encounter (statuses as of 05/30/2019) Medications Medication Sig Dispensed Refills Start Date End Date Status diclofenac (VOLTAREN) 1 2 g by Topical 100 g 1 11/23/2018 Active % Transdermal Gel route FOUR TIMES DAILY. Each thumb lisinopril (PRINIVIL, Take 1 Tab by 90 Tab 1 05/27/2019 Active ZESTRIL) 10 MG Oral Tab mouth DAILY. levothyroxine Take 1 Tab by 90 Tab 1 05/27/2019 Active (SYNTHROID) 175 MCG mouth BEFORE Oral Tab BREAKFAST. HYDROcodone-acetaminoph Take 1 Tab by 90 Tab 0 05/27/2019 Active en (NORCO) 10-325 MG mouth EVERY SIX Oral Tab HOURS NEEDED (moderate to severe pain). Max Daily Amount: 3 Tabs. triazolam (HALCION) Take 0.25 mg by 30 Tab 0 05/27/2019 Active 0.25 MG Oral Tab mouth EVERY BEDTIME NEEDED (as needed). Max Daily Amount: 0.25 mg. amoxicillin-clavulanic Take 1 Tab by 10 Tab 0 05/30/2019 06/04/2019 Active acid (AUGMENTIN) mouth TWICE 875-125 MG Oral DAILY for 5 TabIndications: Acute days. bacterial rhinosinusitis fluticasone (FLONASE) [facility] 2 Sprays 1 Bottle 0 05/30/2019 Active 50 MCG/ACT Nasal in nose DAILY. SuspensionIndications: Acute bacterial rhinosinusitis benzonatate (TESSALON Take 1 Cap by 42 Cap 0 05/30/2019 Active PERLES) 100 MG Oral mouth THREE CapIndications: Acute TIMES DAILY. bacterial rhinosinusitis documented as of this encounter (statuses as of 05/30/2019) Active Problems Problem Noted Date Hiatal hernia 04/17/2017 Light cigarette smoker 04/17/2017 Primary osteoarthritis of both hips 02/18/2017 Overview: Added automatically from request for surgery [id number] Left knee DJD 03/09/2015 Knee osteoarthritis 01/27/2013 Obstructive sleep apnea 01/27/2013 Overview: Sleep study done 2007 Continuous positive airway pressure for several months 2007-. Mateo lesion, acute 01/27/2013 Overview: Bleeding 2005 hiatal hernia hospital stay 2004 and history blood transfusion x3 GERD (gastroesophageal reflux disease) 01/27/2013 Insomnia 01/27/2013 Tobacco use 01/27/2013 Overview: <5 per day Began age 20 Hypothyroidism 04/08/2012 Mixed hyperlipidemia 04/08/2012 Overview: Calcium CT score low risk 2004 Essential hypertension 04/08/2012 BMI 40.0-44.9, adult Overview: This patient's BMI has been calculated and is above average, and BMI management plan is completed. General patient education discussion including: weight loss link to reduction of risk factors for car diac and other diseases Exercise intervention: harish mosquera documented as of this encounter (statuses as of 05/30/2019) Resolved Problems Problem Noted Date Resolved Date Pain in joint, lower leg left knee 08/31/2012 01/27/2013 documented as of this encounter (statuses as of 05/30/2019) Immunizations Name Administration Dates Next Due Influenza (IM) Preservative Free 06/27/2018, 06/13/2013 Influenza Vaccine High Dose 06/12/2017, 05/27/2016, 06/18/2015, 06/07/2014 PNEUMOCOCCAL POLYSACCHARIDE VACCINE 06/30/2014, 11/15/2012 Pneumococcal Conjugate(13 Valent) 05/27/2016 documented as of this encounter Social History Tobacco Use Types Packs/Day Years Used Date Current Some Day Smoker Cigarettes 0.1 40 Smokeless Tobacco: Never Used Comments: going from tobacco to vapor cigarettes Alcohol Use Drinks/Week oz/Week Comments No 0 Standard drinks or equivalent 0.0 Sex Assigned at Date Recorded Not on file Job Start Date Occupation Industry Not on file Not on file Not on file Travel History Travel Start Travel End No recent travel history available. documented as of this encounter Last Filed Vital Signs Vital Sign Reading Time Taken Comments Blood Pressure 124/80 05/30/2019 2:09 PM EDT Pulse 84 05/30/2019 2:09 PM EDT Temperature 36.8 05/30/2019 2:09 PM EDT C (98.2 F) Respiratory Rate - - Oxygen Saturation 94% 05/30/2019 2:09 PM EDT Inhaled Oxygen Concentration - - Weight 142.9 kg (315 lb) 05/30/2019 2:09 PM EDT Height 182.9 cm (6') 05/30/2019 2:09 PM EDT Body Mass Index 42.72 05/30/2019 2:09 PM EDT documented in this encounter Patient Instructions Patient InstructionsMelvi Cadet NP - 05/30/2019 2:00 PM EDT 1) Augmentin 875mg twice daily for 5 days 1) Take Tylenol and Motrin over the counter as needed for pain and symptom relief 2) Flonase 2 sprays in each nostril daily 3) Tessalon Perles to relieve the cough - you can take this up to three times daily as needed but you may want to take this just at night 4) Get plenty of rest and fluids 5) Please call or return if symptoms worsen or fail to improve You have been prescribed an antibiotic for treatment of your condition. It is important to rememberthat antibiotics treat bacterial infections. In order for them to be effective - you must take ALL of the medication and take it exactly as prescribed. FINISH THE MEDICATION - even if you are feelingbetter. Antibiotics can cause stomach upset and diarrhea. You can help decrease these symptoms by also taking a probiotic while using the medication (Align, Culturelle or the like). Take with food if recommended by the pharmacist. If you are not feeling better in 3-5 days - call or return to the office. Upper Respiratory Infection JUNIOR UNDERWRITER: An upper respiratory infection is also called a common cold. It can affect your nose, throat, ears,and sinuses. Common signs and symptoms include the following: Cold symptoms are usually worst for the first 3 to5 days. You may have any of the following: Runny or stuffy nose Sneezing and coughing Sore throat or hoarseness Red, watery, and sore eyes Fatigue Chills and fever Headache, body aches, or sore muscles Seek care immediately if: You have severe headaches, a stiff neck, or eye pain when you look at bright light. You have chest pain or trouble breathing. Contact your healthcare provider if: You have a fever over 102F (39C). Your sore throat gets worse or you see white or yellow spots in your throat. Your symptoms get worse after 3 to 5 days or your cold is not better in 14 days. You have a rash anywhere on your skin. You have large, tender lumps in your neck. You have thick, green or yellow drainage from your nose. You cough up thick yellow, green, mackey, or bloody mucus. You have vomiting for more than 24 hours and cannot keep fluids down. You have a bad earache. You have questions or concerns about your condition or care. Treatment for a cold: There is no cure for the common cold. Colds are caused by viruses and do not get better with antibiotics. Most people get better in 7 to 14 days. You may continue to cough for 2 to 3 weeks. The following may help decrease your symptoms: Decongestants help reduce nasal congestion and help you breathe more easily. If you take decongestant pills, they may make you feel restless or not able to sleep. Do not use decongestant sprays for more than a few days. Cough suppressants help reduce coughing. Ask your healthcare provider which type of cough medicine is best for you. NSAIDs , such as ibuprofen, help decrease swelling, pain, and fever. NSAIDs can cause stomach bleeding or kidney problems in certain people. If you take blood thinner medicine, always ask your healthcare provider if NSAIDs are safe for you. Always read the medicine label and follow directions. Acetaminophen decreases pain and fever. It is available without a doctor' s order. Ask how muchto take and how often to take it. Follow directions. Acetaminophen can cause liver damage if not taken correctly. Manage your cold: Use a humidifier or vaporizer. Use a cool mist humidifier or a vaporizer to increase air moisture in your home. This may make it easier for you to breathe and help decrease your cough. Gargle with warm salt water to help your sore throat feel better. Make salt water by adding teaspoon salt to 1 cup warm water. You may also suck on hard candy or throat lozenges. You may usea sore throat spray. Use saline nasal drops to help relieve your congestion. Drink liquids as directed. Liquids help keep your air passages moist and help you cough up mucus. Ask how much liquid to drink each day and which liquids are best for you. Rest as much as possible. Slowly start to do more each day. Prevent spreading your cold to others: Try to stay away from other people during the first 2 to 3 days of your cold when it is more easily spread. Do not share food or drinks. Do not share hand towels with household members. Wash your hands often, especially after you blow your nose. Turn away from other people and cover your mouth and nose with a tissue when you sneeze or cough. Follow up with your healthcare provider as directed: Write down your questions so you remember to ask them during your visits. 2016 [employer]. Information is for End User's use only and may not be sold, redistributed or otherwise used for commercial purposes. All illustrations and images included in CareNotes are the copyrighted property of [employer], [employer]. or [employer]. The above information is an feed research aide only. It is not intended as medical advice for individual conditions or treatments. Talk to your doctor, nurse or pharmacist before following any medical regimen to see if it is safe and effective for you. documented in this encounter Progress Notes Melvi Cadet NP - 05/30/2019 2:00 PM EDT PATIENT: Arjun Serrano : 1945 DATE OF SERVICE: 05/30/2019 CHIEF COMPLAINT: Chief Complaint Patient presents with Congestion sinus congestion, heaviness in chest, coughing up green stuff. Subjective HISTORY OF PRESENT ILLNESS: Arjnu Serrano is a 73-y.o. male. Cough The history is provided by the patient. This is a new problem. The current episode started 1 to 4 weeks ago (>1 week). The problem occurs constantly. The problem has been unchanged. The cough is productive of sputum (white/green sputum). There has been no fever. There has been no eye redness in hiseyes. Associated symptoms include chest pain (sore ribs when coughing), ear congestion and rhinorrhea. Pertinent negatives include no chills, no sweats, no weight loss, no ear pain, no headaches, no sore throat, no myalgias, no shortness of breath, no wheezing and no eye redness. He has tried decongestant ( effervescent tanisha seltzer for colds. Saline drops nasal rx (this helped), pseudophed) for the symptoms. He is a smoker (1 cigarette per day). always exhausted, sedentary. No antibiotics in the last 3-6 months. He has chronic pain - he goes to orthopedic pool daily. He does not use a senior technical trainer, just focuses on ROM. Past Medical History: Diagnosis Date BMI 40.0-44.9, adult (HCC) Duodenal ulcer, unspecified as acute or chronic, without hemorrhage, perforation, or obstruction s/p GI bleed and transfusion Dyslipidemia Hiatal hernia 2013 moderate Hyperparathyroidism (HCC) Insomnia ? Light cigarette smoker 04/17/2017 OA (osteoarthritis) of hip left replaced 2017 OA (osteoarthritis) of knee CHANDRAKANT (obstructive sleep apnea) auto cpap 8-15 Tobacco user Unspecified essential hypertension Unspecified hypothyroidism Vitamin D deficiency Family History Problem Relation Age of Onset Depression/Depressed Unknown Cancer Father Thyroid Disease Sister Thyroid Disease Brother Anesth Problems No family history Arthritis No family history Clotting Disorder No family history Diabetes No family history Heart Disease No family history Kidney Disease No family history Hypertension No family history Current Outpatient Medications Medication Sig amoxicillin-clavulanic acid (AUGMENTIN) 875-125 MG Oral Tab Take 1 Tab by mouth TWICE DAILY for 5 days. benzonatate (TESSALON PERLES) 100 MG Oral Cap Take 1 Cap by mouth THREE TIMES DAILY. diclofenac (VOLTAREN) 1 % Transdermal Gel 2 g by Topical route FOUR TIMES DAILY. Each thumb fluticasone (FLONASE) 50 MCG/ACT Nasal Suspension [facility] 2 Sprays in nose DAILY. HYDROcodone-acetaminophen (NORCO) 10-325 MG Oral Tab Take 1 Tab by mouth EVERY SIX HOURS NEEDED (moderate to severe pain). Max Daily Amount: 3 Tabs. levothyroxine (SYNTHROID) 175 MCG Oral Tab Take 1 Tab by mouth BEFORE BREAKFAST. lisinopril (PRINIVIL, ZESTRIL) 10 MG Oral Tab Take 1 Tab by mouth DAILY. triazolam (HALCION) 0.25 MG Oral Tab Take 0.25 mg by mouth EVERY BEDTIME NEEDED (as needed). Max Daily Amount: 0.25 mg. No current facility-administered medications for this visit. No Known Allergies Social History Socioeconomic History Marital status: Spouse name: Not on file Number of children: Not on file Years of education: Not on file Highest education level: Not on file Occupational History Not on file Social Needs Financial resource strain: Not on file Food insecurity: Worry: Not on file Inability: Not on file Transportation needs: Medical: Not on file Non-medical: Not on file Tobacco Use Smoking status: Current Some Day Smoker Packs/day: 0.10 Years: 40.00 Pack years: 4.00 Types: Cigarettes Smokeless tobacco: Never Used Tobacco comment: going from tobacco to vapor cigarettes Substance and Sexual Activity Alcohol use: No Alcohol/week: 0.0 standard drinks Drug use: No Types: Prescription Sexual activity: Not Currently Lifestyle Physical activity: Days per week: Not on file Minutes per session: Not on file Stress: Not on file Relationships Social connections: Talks on phone: Not on file Gets together: Not on file Attends baptist service: Not on file Active member of club or organization: Not on file Attends meetings of clubs or organizations: Not on file Relationship status: Not on file Intimate partner violence: Fear of current or ex partner: Not on file Emotionally abused: Not on file Physically abused: Not on file Forced sexual activity: Not on file Other Topics Concern Back Care Not Asked Bike Helmet Not Asked Blood Transfusions Not Asked Caffeine Concern Not Asked Exercise Not Asked Comment: Hobby Hazards Not Asked International Travel Not Asked Service Not Asked Occupational Exposure Not Asked Seat Belt Not Asked Self-Exams Not Asked Sleep Concern Not Asked Comment: Special Diet Not Asked Stress Concern Not Asked Weight Concern Not Asked Social History Narrative Lives in [facility] Moved to [place] from [place] 2009 REVIEW OF SYSTEMS: Review of Systems Constitutional: Negative for chills, fever, malaise/fatigue and weight loss. HENT: Positive for congestion and rhinorrhea. Negative for ear pain, hearing loss, sinus pain and sore throat. Eyes: Negative for redness. Respiratory: Positive for cough and sputum production. Negative for shortness of breath and wheezing. Cardiovascular: Positive for chest pain (sore ribs when coughing). Negative for palpitations. Gastrointestinal: Negative for abdominal pain, constipation, diarrhea, nausea and vomiting. Genitourinary: Negative for dysuria, frequency and urgency. Musculoskeletal: Negative for joint pain and myalgias. Neurological: Negative for dizziness and headaches. Objective PHYSICAL EXAM: VITALS: BP 124/80 (BP Location: Left arm, Patient Position: Sitting) | Pulse 84 | Temp 98.2 F(36.8 C) (Tympanic) | Ht 6' (1.829 m) | Wt 315 lb ( 142.9 kg) | SpO2 94% | BMI 42.72 kg/m Body mass index is 42.72 kg/m. Physical Exam Constitutional: Vital signs are normal. He appears well-developed and well- nourished. Non-toxic appearance. No distress. HENT: Right Ear: External ear and ear canal normal. No mastoid tenderness. Tympanic membrane is bulging. Tympanic membrane is not erythematous and not retracted. Left Ear: External ear and ear canal normal. No mastoid tenderness. Tympanic membrane is bulging. Tympanic membrane is not erythematous and not retracted. Nose: Mucosal edema (and erythema ) and rhinorrhea present. Right sinus exhibits frontal sinus tenderness. Right sinus exhibits no maxillary sinus tenderness. Left sinus exhibits frontal sinus tenderness. Left sinus exhibits no maxillary sinus tenderness. Mouth/Throat: Uvula is midline and mucous membranes are normal. Posterior oropharyngeal erythema present. No tonsillar exudate. Eyes: Conjunctivae are normal. Cardiovascular: Normal rate, regular rhythm and normal heart sounds. Pulmonary/Chest: Effort normal. He has rales in the right middle field. Lymphadenopathy: Head (right side): No submental, no submandibular and no tonsillar adenopathy present. Head (left side): No submental, no submandibular and no tonsillar adenopathy present. He has no cervical adenopathy. Right cervical: No superficial cervical adenopathy present. Left cervical: No superficial cervical adenopathy present. Right: No supraclavicular adenopathy present. Left: No supraclavicular adenopathy present. Neurological: He is alert. Nursing note and vitals reviewed. ASSESSMENT / IMPRESSION: ICD-9-CM ICD-10-CM 1. Cough 786.2 R05 XR CHEST 2 VIEW PA AND LATERAL (STANDARD) 2. Acute bacterial rhinosinusitis 461.9 J01.90 amoxicillin-clavulanic acid ( AUGMENTIN) 875-125 MG Oral Tab B96.89 fluticasone (FLONASE) 50 MCG/ACT Nasal Suspension benzonatate (TESSALON PERLES) 100 MG Oral Cap Plan 1. Cough - XR CHEST 2 VIEW PA AND LATERAL (STANDARD); Future - read by radiologist today , No Pneumonia 2. Acute bacterial rhinosinusitis - amoxicillin-clavulanic acid (AUGMENTIN) 875-125 MG Oral Tab; Take 1 Tab by mouth TWICE DAILY for 5days. Dispense: 10 Tab; Refill: 0 - fluticasone (FLONASE) 50 MCG/ACT Nasal Suspension; [facility] 2 Sprays in nose DAILY. Dispense: 1 Bottle; Refill: 0 - benzonatate (TESSALON PERLES) 100 MG Oral Cap; Take 1 Cap by mouth THREE TIMES DAILY. Dispense: 42 Cap; Refill: 0 1) Augmentin 875mg twice daily for 5 days 2) Flonase 2 sprays in each nostril daily 3) Tessalon Perles to relieve the cough - you can take this up to three times daily as needed but you may want to take this just at night 4) Get plenty of rest and fluids 5) Please call or return if symptoms worsen or fail to improve Author: Melvi Cadet NP 05/30/2019 16:17 documented in this encounter Plan of Treatment Health Maintenance Due Date Last Done Comments MEDICARE ANNUAL WELLNESS 1945 VISIT HIV SCREENING 1962 ZOSTER IMMUNIZATION SERIES 1997 (1 of 2) AAA SCREENING/SURVEILLANCE 2012 INFLUENZA VACCINE (#1) 2019 06/27/2018, 06/12/2017, 05/27/2016, Additional history exists FALL RISK ASSESSMENT 07/19/2019 07/19/2018, 07/19/2018 DEPRESSION SCREENING 02/26/2020 02/25/2019 LIPID DISORDER SCREENING 02/26/2020 02/25/2019, 02/04/2017 PNEUMOCOCCAL 65+YRS Completed 05/27/2016, 06/30/2014, 11/15/2012 HPV IMMUNIZATION SERIES Aged Out No longer eligible based on patient's age to complete this topic MENINGOCOCCAL VACCINE IMM Aged Out No longer eligible based on patient's age to complete this topic documented as of this encounter Goals Goal Patient Goal Associated Recent Patient-Stated? Author Type Problems Progress Blood Pressure Blood Pressure 124/80 No Jacob, < 150/90 (05/30/2019 MD Baldo 2:09 PM EDT) Note: This is an individualized treatment (blood pressure) goal for Ajrun Serrano: Displayed above (on the left) is your goal for blood pressure control. Your most recent blood pressure is also shown above, on the right. You should try to achieve blood pressures that are lower than your goal listed above (on the left). Unit - lb < 250 Result Component No Baldo James MD Take all prescribed medications as directed Self-management No Baldo James MD Note: This is an individualized self-management goal for Arjun Serrano: Please take all prescribed medications as directed. 1. Do not skip doses. If you cannot afford your medications, talk with your doctor. 2. Use a pill reminder system such as a pill box if needed. Your pharmacist can help you with this. 3. Contact your Pharmacy 5 days before your medication runs out. If you cannot take your medications for any reasons, talk with your doctor. 4. Please bring all of your medication bottles and inhalers (or a list of all your medications/inhalers) with you to every visit. Potential barriers to meeting all of your care plan goals will continue to be addressed on an ongoing basis. documented as of this encounter Implants Implanted Type Area Locum Tenens Psychiatrist Device Shelf Model / Serial Identifier Expiration / Lot Date Persona Femur Left: TAMMY WILLIAMSON [id number] 11/11/2024 [id number] / Implanted: Qty: 1 on 03/28/2015 by Jun Rodas MD at [facility] [employer] [id number] Persona Natural Tibia Left: TAMMY WILLIAMSON [id number] 01/11/2025 [id number] / Implanted: Qty: 1 on 03/28/2015 by Jun Rodas MD at [facility] [employer] [id number] Persona Articular Surface Left: TAMMY WILLIAMSON [id number] 09/13/2022 [id number] / Implanted: Qty: 1 on 03/28/2015 by Jun Rodas MD at [facility] [employer] 0 / [id number] Bone Cement, Double 80gm - [id number] Left: DEPUY 06/13/2017 [id number] / Implanted: Qty: 1 on 03/28/2015 by Jun Rodas MD at [facility] / [id number] Cup, Pinn 100 W/Gription 58mm - [id number] Right: DEPUY 06/13/2025 [id number] / Implanted: Qty: 1 on 04/28/2017 by Jun Rodas MD at [facility] Hip / [id number] Liner, Altrx Neut 36id X 58od - [id number] Right: DEPUY 01/11/2022 [id number] / Implanted: Qty: 1 on 04/28/2017 by Jun Rodas MD at [facility] / [id number] Cup, Genoa Hole Spurger Positive Stop - [id number] Right: DEPUY 11/11/2026 [id number] / Implanted: Qty: 1 on 04/28/2017 by Jun Rodas MD at [facility] Hip / [id number] Stem, Tri-Lock Bps Sz 6 Hi Offset - [id number] Right: DEPUY 05/14/2025 [id number] / Implanted: Qty: 1 on 04/28/2017 by Jun Rodas MD at [facility] Hip / [id number] Head, Katerina Ts Cer 08/27 36mm +8.5 - [id number] Right: DEPUY 05/14/2019 [id number] / Implanted: Qty: 1 on 04/28/2017 by Jun Rodas MD at [facility] / [id number] documented as of this encounter Results XR CHEST 2 VIEW PA AND LATERAL (STANDARD) (05/30/2019 2:57 PM EDT) Specimen Impressions Performed At 1. No acute cardiopulmonary abnormality. 2. Large hiatal hernia along with probable focal eventration of the left hemidiaphragm. Patchy opacity surrounding the herniated stomach presumably corresponds to compressive atelectasis. Urgency: Routine. This is a routine medical imaging report. Recommendation: No specific imaging recommendation Signed by Brad Valderrama on 05/30/2019 3:11 PM Narrative Performed At Procedure(s): XR CHEST 2 VIEW PA AND LATERAL (STANDARD) Date of service: 05/30/2019 2:47 PM Provided clinical information: 73 years, Male, "cough and congestion, rales RML" Procedure: Standard protocol. Comparison: None. Observations: PA and lateral radiographs of the chest were obtained. There is a large hiatal hernia along with probable focal eventration of the left hemidiaphragm. Patchy opacity surrounding the herniated stomach presumably corresponds to compressive atelectasis. The right lung is clear. There is no pulmonary vascular congestion. There is no pneumothorax or pleural effusion. The cardiomediastinal silhouette is within normal limits. The included osseous structures are unremarkable. Procedure Note Interface, Rad Results - 05/30/2019 3:13 PM EDT Procedure(s): XR CHEST 2 VIEW PA AND LATERAL (STANDARD) Date of service: 05/30/2019 2:47 PM Provided clinical information: 73 years, Male, "cough and congestion, rales RML" Procedure: Standard protocol. Comparison: None. Observations: PA and lateral radiographs of the chest were obtained. There is a large hiatal hernia along with probable focal eventration of the left hemidiaphragm. Patchy opacity surrounding the herniated stomach presumably corresponds to compressive atelectasis. The right lung is clear. There is no pulmonary vascular congestion. There is no pneumothorax or pleural effusion. The cardiomediastinal silhouette is within normal limits. The included osseous structures are unremarkable. IMPRESSION 1. No acute cardiopulmonary abnormality. 2. Large hiatal hernia along with probable focal eventration of the left hemidiaphragm. Patchy opacity surrounding the herniated stomach presumably corresponds to compressive atelectasis. Urgency: Routine. This is a routine medical imaging report. Recommendation: No specific imaging recommendation Signed by Brad Valderrama on 05/30/2019 3:11 PM documented in this encounter Visit Diagnoses Diagnosis Cough - Primary Acute bacterial rhinosinusitis documented in this encounter Guarantor Name Account Type Relation to Date of Phone Billing Patient Address Arjun Serrano Personal/Family 1945 [address] [facility] (Home) [facility] [phone] [facility] [place] ([place]) [place] [address] documented as of this encounter Advance Directives Type Date Recorded Patient Regional Recruiter Explanation Advance Directives 05/01/2017 9:44 AM
--- NOTE | 2019-06-10 15:08 | ED ---
Dizziness - HPI Summary HPI Summary: 73 year old M presenting to [facility] accompanied by w complaints of light headedness that started 2-3 weeks ago. He states that if he sits up, he feels like he might have a syncopal episode. He reports fatigue and weakness. Denies fever, chest pain. Denies recent falls. States he finished antibiotics 2 days ago for an upper respiratory infection. Patient states 30 years ago, he had an episode of anemia, and today's symptoms feel similar. Also has hx hypothyroidism , and states when his thyroid levels get too low, he has symptoms like he has today. Symptoms aggravated by standing up from a sitting position. Symptoms alleviated by nothing. Denies CP, syncope, vertigo, numbness/weakness. Uses wheelchair for mobility. No headaches. - History Of Current Complaint Chief Complaint: EDDizziness Stated Complaint: DIZZY, LIGHTHEADED, EXHAUSTED PER PT Time Seen by Provider: 06/10/19 14:53 Hx Obtained From: Patient Onset/Duration: Still Present Timing: Constant - 2-3 Character: Lightheaded Alleviating Factor(s): Nothing Associated Signs And Symptoms: Positive: Negative - fever, chest pain, Other: - fatigue, weakness - Allergies/Home Medications Allergies/Adverse Reactions: Allergies Allergy/AdvReac Type Severity Reaction Status Date / Time No Known Allergies Allergy Verified 06/10/19 14:28 Home Medications: Home Medications Hydrocodone/Acetaminophen [Hydrocodone-Acetamin 10-325 mg] 1 tab PO Q6H PRN [History Confirmed 06/10/19] Levothyroxine TAB* [Synthroid TAB*] 175 mcg PO DAILY 06/10/19 [History Confirmed 06/10/19] Lisinopril 10 mg PO DAILY 06/10/19 [History Confirmed 06/10/19] Triazolam TAB* [Halcion TAB*] 1 tab PO BEDTIME 06/10/19 [History Confirmed 06/10] PMH/Surg Hx/FS Hx/Imm Hx Endocrine/Hematology History: Reports: Hx Thyroid Disease, Hx Anemia - from hiatal hernia 1999 (possible Mateo lesion) Denies: Hx Diabetes Cardiovascular History: Reports: Hx Hypertension Respiratory History: Reports: Hx Sleep Apnea - marginal-, Other Respiratory Problems/Disorders - Uvulitis Denies: Hx Asthma, Hx Chronic Obstructive Pulmonary Disease (COPD) GI History: Reports: Hx Gastroesophageal Reflux Disease - 1900's, Hx Hiatal Hernia, Hx Ulcer History: Reports: Other Problems/Disorders - BPH Musculoskeletal History: Reports: Hx Arthritis - 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 L knee replacement Hx Anesthesia Reactions: Yes - after spinal urinary retention Infectious Disease History: No Infectious Disease History: Denies: Hx Hepatitis, Hx Human Immunodeficiency Virus (HIV), Traveled Outside the [place] in Last 30 Days - Family History Known Family History: Positive: Hypertension Family History: NEG: COPD, asthma - Social History Alcohol Use: None Hx Substance Use: Yes Substance Use Comment - Amount & Last Used: halcion for sleep Hx Tobacco Use: Yes Smoking Status (MU): Light Every Day Tobacco Smoker Amount Used/How Often: 1-2 cigs Review of Systems Positive: Fatigue. Negative: Fever Negative: Chest Pain Neurological: Other - Dizziness, light heaedness Positive: Weakness All Other Systems Reviewed And Are Negative: Yes Physical Exam - Summary Physical Exam Summary: Constitutional: Well-developed, Well-nourished, Alert. (-) Distressed Skin: Warm, Dry HENT: Normocephalic; Atraumatic Eyes: Conjunctiva normal Neck: Musculoskeletal ROM normal neck. (-) JVD, (-) Nuchal rigidity Cardio: Rhythm regular, rate normal, Heart sounds normal; Intact distal pulses; Radial pulses are 2+ and symmetric. (-) Murmur Pulmonary/Chest wall: Effort normal. (-) Respiratory distress, (-) Wheezes, (-) Rales Abd: Soft, obese, (-) Tenderness, (-) Distension, (-) Guarding, (-) Rebound. Musculoskeletal: (-) Edema Lymph: (-) Cervical adenopathy Neuro: Alert, PERRL, Oriented x3, Strength normal, Cranial nerves II-XII are grossly intact. SILT, Strength 5/5 BUE and BLE, (-) Dysmetria, (-) Nystagmus. Psych: Mood and affect Normal Triage Information Reviewed: Yes Vital Signs On Initial Exam: Initial Vitals Temp Pulse Resp BP Pulse Ox 97.2 F 72 20 131/91 94 06/10/19 14:25 06/10/19 14:25 06/10/19 14:25 06/10/19 14:25 06/10/19 14:25 Vital Signs Reviewed: Yes Diagnostics - Vital Signs Vital Signs Temp Pulse Resp BP Pulse Ox 06/10/19 14:38 70 20 130/86 94 06/10/19 14:37 73 27 95 06/10/19 14:25 97.2 F 72 20 131/91 94 - Laboratory Result Diagrams: 06/10/19 15:00 06/10/19 15:00 Lab Statement: Any lab studies that have been ordered have been reviewed, and results considered in the medical decision making process. - Radiology CXR Radiology Interpretation Completed By: Radiologist Summary of Radiographic Findings: HIATAL HERNIA. NO ACTIVE CARDIOPULMONARY DISEASE. ED physician has reviewed this report. - EKG 1523 Cardiac Rate: NL - 67 BPM Summary of EKG Findings: 67 BPM. Prolonged HI and QTc intervals. No prior to compare 1640 Cardiac Rate: NL - 66 BPM EKG Rhythm: Sinus Rhythm Summary of EKG Findings: Sinus 66 with low voltage per Dr. Serrano, cardiology Re-Evaluation - Re-Evaluation First Eval Re-Evaluation Time: 17:08 Comment: patient updated on his labs. will give him an Albuterol treatment Second Eval Re-Evaluation Time: 18:07 Comment: iscussed with patient findings including normal lites, stable hemoglobin of 14, EKG sinus. Chest x-ray without evidence of pneumonia. Repeat EKG similar to prior. Troponin normal. At this time as for lightheadedness, normal neuro exam and does not describe Dizzy Course/Dx - Course Course Of Treatment: 73 y/o male p/w lightheadedness and fatigue. - physical examination elderly male no acute distress. Unremarkable neuro exam. Reports recent bronchitis, has wheezing on exam, we'll treat with albuterol neb. Check a chest x-ray for pneumonia. Check labs including a CBC to assess for anemia and underlying infection, TSH and T4 given reported hypothyroidism, electrolytes including magnesium, troponin. Will also check orthostatics. No CP suspicion for ACS, no syncopal events. Patient is relatively immobile at baseline does report some lightheadedness with sitting. - Diagnoses Provider Diagnoses: Light headedness - Provider Notifications Discussed Care Of Patient With: Ji Serrano Time Discussed With Above Provider: 16:55 Instructed by Provider To: Other - Dr. Serrano, cardiology, reviewed patient' s EKG and thinks it is sinus but low voltage. Discharge ED - Sign-Out/Discharge Documenting (check all that apply): Patient Departure - Discharge Patient Received Moderate/Deep Sedation with Procedure: No - Discharge Plan Condition: Stable Disposition: HOME Patient Education Materials: Lightheadedness (ED) Referrals: Baldo James MD [Primary Care Provider] - El Hope MD [Medical Doctor] - Additional Instructions: You were seen in the emergency department for light headedness. Your labs and EKG were unremarkable. Your chest x-ray did not show any pneumonia. If any studies were not completed at the time of discharge you will be called with the relevant results. Please follow up with your primary care doctor in next 2-3 days and return to emergency department for worsening lightheadedness, dizziness, syncope, chest pain, numbness or weakness or concerning symptoms. It was a pleasure taking care of you today. - Billing Disposition and Condition Condition: STABLE Disposition: Home - Attestation Statements Document Initiated by Abram: Yes Documenting Scribe: Carmen Kang Provider For Whom Abram is Documenting (Include Credential): Vinicius Michele MD Scribe Attestation: I, Carmen Kang, scribed for Vinicius Michele MD on 06/10/19 at 1831. Scribe Documentation Reviewed: Yes Provider Attestation: The documentation as recorded by the scribe, Carmen Kang accurately reflects the service I personally performed and the decisions made by me, Vinicius Michele MD Status of Scribe Document: Viewed
[2019-06-10 15:09] LABS: ABS Basophils 0.1 10^3/ul (0-0.2); ABS Eosinophils 0.1 10^3/ul (0-0.6); ABS Lymphocytes 2.1 10^3/ul (1.0-4.8); ABS Monocytes 0.7 10^3/ul (0-0.8); ABS Neutrophils 5.9 10^3/ul (1.5-7.7); Eosinophil % 1.5 %; Hematocrit 45 % (42-52); Hemoglobin 14.7 g/dL (14.0-18.0); Lymphocyte % 23.6 %; Mean Corpuscular HGB Conc 33 g/dL (31-36); Mean Corpuscular Hemoglobin 27 pg (27-31); Mean Corpuscular Volume 82 fL (80-94); Mean Platelet Volume 8.5 fL (7.4-10.4); Nucleated Red Blood Cells % 0.1; Platelet Count 311 10^3/uL (150-450); Red Blood Count 5.46 10^6 /uL (4.18-5.48); Red Cell Distribution Width 15 % (10-15); White Blood Count 8.9 10^3/uL (3.5-10.8)
[2019-06-10 15:32] LABS: Albumin 3.9 g/dL (3.2-5.2); Albumin/Globulin Ratio 1.3 (1-3); BUN/Creatinine Ratio 15.8 (8-20); Calcium 9.6 mg/dL (8.6-10.3); EGFR African American 76.6 (>60); EGFR Non-African American 63.3 (>60); Potassium 4.2 mmol/L (3.5-5.0); Total Bilirubin 0.4 mg/dL (0.2-1.0); Total Protein 6.9 g/dL (6.4-8.9)
[2019-06-10 15:33] LABS: Troponin I 0.01 ng/mL (<0.04)
[2019-06-10 16:00] LABS: Urine Appearance Clear; Urine Bacteria Absent (Absent); Urine Bilirubin Negative (Negative); Urine Blood Negative (Negative); Urine Color Yellow; Urine Glucose Negative (Negative); Urine Ketones Negative (Negative); Urine Nitrite Negative (Negative); Urine Protein Negative (Negative); Urine Red Blood Cell Trace(0-2/hpf) (Absent); Urine Specific Gravity 1.025 (1.010-1.030); Urine Squamous Epithelial Cell Present (Absent); Urine Urobilinogen Negative (Negative); Urine White Blood Cell Trace(0-5/hpf) (Absent)
[2019-06-10 16:38] LABS: TSH (Thyroid Stimulating Horm) 1.05 mcIU/mL (0.34-5.60)
[2019-06-10 16:40] LABS: Free T4 1.01 ng/dL (0.61-1.12)
[2019-06-10] MEDS ORDERED: Albuterol 2.5 MG/3 ML NEB.SOL* (0.083%) INH ONE ×2 (17:11→17:12)
[2019-06-10] MEDS: Albuterol (2.5 MG) 0.5 % CONC 2.5 MG/0.5 ML NEB.SOLN (ICU and ED only) INH ONE ×2 (17:20→17:21)
[2019-06-10 18:41] VITALS: BP 146/83
== END 2019-06-10 18:39 | disposition home or self-care (01) ==
LOC: ED 14:17
DX: R42 Dizziness and giddiness (principal); K44.9 Diaphragmatic hernia without obstruction or gangrene; E07.9 Disorder of thyroid, unspecified; D64.9 Anemia, unspecified; I10 Essential (primary) hypertension; K21.9 Gastro-esophageal reflux disease without esophagitis; F41.9 Anxiety disorder, unspecified; F17.210 Nicotine dependence, cigarettes, uncomplicated; Z96.643 Presence of artificial hip joint, bilateral; Z79.899 Other long term (current) drug therapy
CPT/HCPCS: 36415; 71046; 80053; 81003; 81015; 83735; 84439; 84443; 84484; 85025; 87086; 93005; 99282